=== PATIENT | female | born 1950 | race Caucasian/White ===

== ENCOUNTER → 2025-03-15 09:17 | Outpatient (CLI) | payer MEDICARE, OTHER, SELFPAY ==
[2025-03-15 10:25] LABS: Add Manual Diff / Slide Review NO; Hematocrit 37.9 % (36-46); Hemoglobin 12.7 g/dL (12.0-16.0); Lymphocytes Absolute Auto 1200 /uL (1100-4500); Mean Corpuscular HGB Conc 33.6 % (30-36); Mean Corpuscular Hemoglobin 30.3 PG (26-34); Mean Corpuscular Volume 90.1 fL (80-100); Platelet Count 282 X10^3/uL (150-400)
[2025-03-15 10:48] LABS: Alanine Aminotransferase 15 IU/L (<35); Albumin 4.8 g/dL (3.5-5.0); Albumin Globulin Ratio 2.1 (1.0-2.8); Alkaline Phosphatase 53 U/L (38-126); Blood Urea Nitrogen 12 mg/dL (7-17); Calcium 9.5 mg/dL (8.4-10.2); Carbon Dioxide 25 mmol/L (22-32); Chloride 101 mmol/L (98-107); Cholesterol 229 mg/dL (140-199); Estimated Glomerular Filt Rate > 60 mL/min (>60); Globulin 2.3 g/dL (1.7-4.1); Glucose 91 mg/dL (70-99); HDL Cholesterol 102 mg/dL (40-60); HEMOLYSIS < 15 (0-50); Potassium 4.6 mmol/L (3.4-5.1); Sodium 136 mmol/L (137-145); Total Protein 7.1 g/dL (6.3-8.2); Triglycerides 45 mg/dL (35-150)
[2025-03-15 11:01] LABS: Vitamin D 25 Hydroxy (D3) 48.3 ng/mL (30.0-100.0)
[2025-03-15 11:24] LABS: Progesterone, Total 0.59 ng/mL
[2025-03-15 11:49] LABS: Folate > 20.0 ng/mL (2.76-20.0); Vitamin B12 364 pg/mL (239-931)
== END ==
PROVIDERS: PCP Family Medicine; Referring Provider Family Medicine; Visit Provider Family Medicine
DX: Z78.0 Asymptomatic menopausal state (principal); Z86.39 Personal history of other endocrine, nutritional and metabolic disease
CPT/HCPCS: 36415; 80053; 80061; 82306; 82607; 82627; 82672; 82746; 84144; 84403; 85025